=== PATIENT | male | born 1975 | race Hispanic/Latino ===

== ENCOUNTER 2024-07-08 13:52 | Emergency (ER) | payer SELFPAY ==
[~2024-07-08] VITALS: Ht 162.6 cm; Wt 72.6 kg
--- NOTE | 2024-07-08 15:17 | ERN ---
ED Note History of Present Illness Stated Complaint: PAIN Time Seen by MD: 13:53 Dictation: PATIENT IS A 49-YEAR-OLD MALE COMING IN TODAY WITH RIGHT LATERAL SUPERIOR CHEST WALL TENDERNESS WORSE WITH PALPATION OR COUGH ONSET THIS MORNING. STATES HE IS COMING FROM [place] AND HAS BEEN WORKING IN [place] HOWEVER THE PAIN STARTED ON HIS WAY BACK TO [place]. TOOK IBUPROFEN 400 MG/[id number] 0 800 WITHOUT HELP. NO ANTERIOR CHEST PAIN NO BACK PAIN NO SOB NO ARM PAIN NO JAW PAIN. NO PRIMARY CARE DOCTOR Allergies: Coded Allergies: No Known Drug Allergies (Unverified Allergy, Unknown, 07/08/24) Past Medical History RN Note Reviewed/Agreed w/PFSH: Yes Review of System Dictation CONSTITUTIONAL: NEGATIVE EXCEPT FOR HPI HEAD/FACE: NEGATIVE EXCEPT FOR HPI EENT: NEGATIVE EXCEPT FOR HPI RESPIRATORY: NEGATIVE EXCEPT FOR HPI RIGHT LATERAL SUPERIOR CHEST WALL TENDERNESS GASTROINTESTINAL/ABDOMINAL: NEGATIVE EXCEPT FOR HPI GENITOURINARY: NEGATIVE EXCEPT FOR HPI MUSCULOSKELETAL: NEGATIVE EXCEPT FOR HPI INTEGUMENTARY: NEGATIVE EXCEPT FOR HPI NEUROLOGICAL/PSYCH: NEGATIVE EXCEPT FOR HPI HEMATOLOGIC/LYMPHATIC: NEGATIVE EXCEPT FOR HPI ALL SYSTEMS NEGATIVE, EXCEPT NOTED ABOVE. 13 POINT REVIEW OF SYSTEMS ASSESSED AND ALL NEGATIVE EXCEPT FOR ABOVE. Initial Vital Sign VS Vital Signs Date Time Temp Pulse Resp B/P (MAP) Pulse Ox O2 Delivery O2 Flow Rate FiO2 07/08/24 16:02 97.3 88 18 166/94 99 Room Air Physical Exam Dictation VITAL SIGNS REVIEWED GENERAL APPEARANCE: ALERT, ORIENTED X 3, MILD ACUTE DISTRESS, WELL DEVELOPED, NOURISHED. HEAD AND FACE: NON-TRAUMATIC. EYES: PERRL, PINK CONJUNCTIVAS, EYELID NO TRAUMA, ANTERIOR CHAMBER WITH ARCUS SENILIS. EARS: PINNAS INTACT AND NO SIGNS OF TRAUMA OR ERYTHEMA EAR CANALS CLEAR AND NO DISCHARGE TM NO ERYTHEMA NOSE: NO DISCHARGE, NO BLEEDING. OROPHARYNX: MOUTH NORMAL, TONGUE PINK, PHARYNX CLEAR,NO ERYTHEMA, TONSILS NO EXUDATES, NO ABSCESSES NOTED, MUCOUS MEMBRANE MOIST NECK: SUPPLE, NON-TENDER, NO THYROMEGALY, NO MASSES, NO JVD, NO BRUITS BREAST:DEFERRED CHEST: MODERATE RIGHT LATERAL SUPERIOR CHEST WALL TENDERNESS WITH PALPATION, NO CREPITUS, NO PARADOXICAL MOVEMENT, NO RETRACTIONS NO SKIN LESIONS LUNGS:CLEAR, WELL-VENTILATED, SYMMETRIC, NO RALES, NO WHEEZING, NO RHONCHI, NO STRIDOR, GOOD BREATH SOUNDS BILATERALLY HEART: REGULAR RATE, REGULAR RHYTHM, NO MURMUR, NO GALLOPS VASCULAR: NO PERIPHERAL EDEMA, ABDOMEN: SOFT, POSITIVE BOWEL SOUNDS, NONDISTENDED, NO GUARDING, NONTENDER, NO REBOUND, NO MASSES NO HEPATOMEGALY, NO SPLENOMEGALY, NO MICHAEL'S SIGN, NO HERNIAS. RECTAL: DEFERRED GENITAL: DEFERRED NEUROLOGICAL: NORMAL SPEECH, MOTOR FUNCTION INTACT, SENSORY FUNCTION INTACT MUSCULOSKELETAL: NECK NONTENDER, FULL RANGE OF MOTION, BACK NONTENDER, FULL RANGE OF MOTION, EXTREMITIES: NONTENDER, FULL RANGE OF MOTION SKIN: COLOR PINK, DRY, NO TURGOR, NO RASH, NO LACERATIONS, NO ABRASIONS, NO CONTUSIONS. LYMPHATIC: DEFERRED Results (Laboratory/Radiology) Laboratory/Radiology RIBS UNI RT W PA CHEST 3+ VWS REASON: RIGHT LATERAL SUPERIOR RIB TENDERNESS WITH PALPATION COUGH. COMPARISON: None TECHNIQUE: Frontal projection of the chest was obtained. 2 images of right ribs were obtained. FINDINGS: No acute pulmonary infiltrates is seen. The heart is not enlarged. Degenerative changes are seen. No acute displaced fracture is seen of right ribs. IMPRESSION: Findings as described abov Labs Reviewed?: Yes ED Course ED Course Orders Procedure Category Date Status Time Ribs Uni Rt W Pa RAD 07/08/24 Resulted Chest 3+ Vws 15:14 Ketorolac 60mg/2ml PHA 07/08/24 Complete (Toradol 60mg/2ml) 15:30 Current Medications Medications (Trade) Dose Ordered Sig/Diego Route PRN Reason Start Time Stop Time Status Last Admin Dose Admin Ketorolac Tromethamine (toRADol 60MG/ 2ML) 60 mg ONCE ONCE IM 07/08/24 15:30 07/08/24 15:31 DC Vital Signs Date Time Temp Pulse Resp B/P (MAP) Pulse Ox O2 Delivery O2 Flow Rate FiO2 07/08/24 16:02 97.3 88 18 166/94 99 Room Air 1820/PATIENT STATES PAIN IS REDUCED AFTER KETOROLAC. CHEST X-RAY NEGATIVE WE WILL TREAT PATIENT FOR ACUTE COSTOCHONDRITIS Medical Decision Making MDM MEDICAL DISCHARGE MAKING BASED ON RIB SERIES PAIN MANAGEMENT FOR ACUTE COSTOCHONDRITIS SENT HOME WITH IBUPROFEN AND PREDNISONE. DX & DISP Disposition: Discharge Departure Impression: Primary Impression: Acute costochondritis Condition: Stable Scripts Prednisone (Prednisone) 20 Mg Tablet 1 TAB PO AD for 6 Days, #14 TAB 0 Refills TAKE 1 TAB BY MOUTH THREE TIMES PER DAY X3 DAYS, THEN TAKE 1 TAB BY MOUTH TWICE A DAY X2 DAYS, THEN TAKE 1 TAB BY MOUTH ONCE A DAY X1 DAY. Prov: NANCY FABIAN NP 07/08/24 Ibuprofen (Ibuprofen 800 mg Tab) 800 Mg Tab 800 MG PO Q8H PRN for fever or pain, #30 TAB 0 Refills Prov: NANCY FABIAN NP 07/08/24 Additional Instructions: FOLLOW-UP WITH PRIMARY CARE PROVIDER IN 1 TO 2 DAYS. TAKE MEDICATIONS DIRECTED HERE IN THE EMERGENCY ROOM. OKAY TO CONTINUE HOME MEDICATIONS UNLESS OTHERWISE DISCUSSED DURING YOUR VISIT IN THE EMERGENCY ROOM TODAY. RETURN TO YOUR NEAREST EMERGENCY ROOM IF SYMPTOMS WORSEN OR IF THERE IS NO IMPROVEMENT. CALL 911 IF YOU NEED IMMEDIATE ASSISTANCE. TAKE TYLENOL OR MOTRIN [id number]-AVAERTH NEEDED AND IF NO CONTRAINDICATIONS ARE PRESENT. INCREASE ORAL HYDRATION. A WOUND CULTURE OR URINE CULTURE WAS ORDERED HERE IN THE EMERGENCY ROOM DEPARTMENT PLEASE FOLLOW-UP WITH PRIMARY CARE PROVIDER AND ADVISE THEM TO GET REPEAT PORTS FROM OUR FACILITY. IF YOU HAD ANY [place] WRAP/SPLINTS THAT WERE APPLIED HERE, PLEASE DO NOT REMOVE THEM UNTIL YOU SEE YOUR PRIMARY CARE OR SPECIALTY. TAKE IBUPROFEN EVERY8 HOURS WITH FOOD FOR THE NEXT24 HOURS. TAKE PREDNISONE DIRECTED WITH FOOD UNTIL GONE. SEE YOUR PRIMARY CARE DOCTOR FOR FOLLOW UP. Referrals: SELF,REFERRAL (PCP) Time of Disposition: 18:25 I have reviewed the case, and I agree with, Diagnosis and Plan NANCY FABIAN NP Jul 08, 2024 15:17
[2024-07-08] MEDS ORDERED: ketOROlac 60 MG VIAL (30MG/ML) IM ONE (15:30)
[2024-07-08 16:02] VITALS: BP 166/94; PULSE 88; RESP 18; TEMP 97.4
--- NOTE | 2024-07-08 17:04 | HMCIMG ---
RIBS UNI RT W PA CHEST 3+ VWS REASON: RIGHT LATERAL SUPERIOR RIB TENDERNESS WITH PALPATION COUGH. COMPARISON: None TECHNIQUE: Frontal projection of the chest was obtained. 2 images of right ribs were obtained. FINDINGS: No acute pulmonary infiltrates is seen. The heart is not enlarged. Degenerative changes are seen. No acute displaced fracture is seen of right ribs. IMPRESSION: Findings as described above.
[2024-07-08] MEDS ORDERED: PRED20TA3 PO (18:26)
[2024-07-08] MEDS ORDERED: IBUP-2077 PO (18:26)
--- NOTE | 2024-07-08 19:09 | NUR ---
CALLED FOR DISCHARGE. NO ANSWER
--- NOTE | 2024-07-08 19:17 | NUR ---
CALLED FOR DISCHARGE, NO ANSWER
--- NOTE | 2024-07-08 19:19 | NUR ---
PT NOT IN LOBBY OR RESTROOM, CALLED BY CIARA CALDERON. NO ANSWER
== END 2024-07-08 19:20 | disposition left against medical advice (07) ==
LOC: EDH 13:52
DX: M94.0 Chondrocostal junction syndrome [Tietze] (principal)
CPT/HCPCS: 71101; 99283